=== PATIENT | female | born 1990 | race Caucasian/White ===

== ENCOUNTER → 2021-02-20 09:39 | Outpatient (CLI) | payer BC, SELFPAY ==
--- NOTE | 2021-02-20 09:44 | US_ITS ---
PROCEDURE: US TRANSVAGINAL CLINICAL INDICATION: ENLARGED UTERUS COMPARISON: No exams were available for comparison FINDINGS: The uterus is retroverted. No obvious uterine mass. UTERUS: 7cm x 5cmx 4cm with a combined endometrial thickness of 7.1mm LEFT OVARY: [id number] with a volume of 6.2ml. RIGHT OVARY: [id number] with a volume of 6.4ml. Numerous small bilateral ovarian follicles. No dominant cyst. No cul-de-sac fluid. Bilateral ovarian blood flow IMPRESSION: Retroverted uterus otherwise negative pelvic ultrasound Dictated by: Sukhi Kumar MD 02/20/2021 13:48 Sukhi Kumar MD in [place] 02/20/2021 13:48
== END ==
PROVIDERS: PCP Nurse Practitioner Family; Visit Provider Nurse Practitioner Family
DX: N85.2 Hypertrophy of uterus (principal)
CPT/HCPCS: 76830

== ENCOUNTER → 2021-03-06 13:33 | Outpatient (CLI) | payer BC, SELFPAY | PROVIDERS: PCP Nurse Practitioner Family; Visit Provider Nurse Practitioner | DX: Z20.822 Contact with and (suspected) exposure to COVID-19 (principal) | CPT/HCPCS: C9803; U0003; U0005 ==

== ENCOUNTER → 2021-05-28 12:15 | Outpatient (CLI) | payer BC, SELFPAY | PROVIDERS: PCP Nurse Practitioner Family; Visit Provider Nurse Practitioner | DX: Z20.822 Contact with and (suspected) exposure to COVID-19 (principal) | CPT/HCPCS: C9803; U0003; U0005 ==

== ENCOUNTER → 2021-07-19 15:30 | Outpatient (CLI) | payer BC, SELFPAY | PROVIDERS: PCP Nurse Practitioner Family; Visit Provider Nurse Practitioner | DX: U07.1 COVID-19 (principal) | CPT/HCPCS: C9803; U0003; U0005 ==

== ENCOUNTER 2022-05-16 08:00 | Emergency (ER) | payer BC, SELFPAY ==
--- NOTE | 2022-05-16 08:16 | EXP.UTC ---
Discharge Plan Disposition Patient Disposition: Home, Self-Care Condition: Good Prescriptions Prescriptions: New clindamycin HCl 300 mg capsule 300 mg PO Q8H Qty: 30 0RF Referrals Follow up/Referrals: Christina Figueroa APRN [Primary Care Provider] - See instructions Activity Restrictions/Add. Instructions Additional Instructions/Restrictions: Drink plenty of fluids. Take tylenol or ibuprofen for pain or fever. Take the medications as directed. Follow up with your regular doctor. GO TO THE ER FOR ANY WORSENING SYMPTOMS Throw your tooth brush away and get a new one. Clinical Impressions Clinical Impression: Strep throat Stand Alone Forms Stand Alone Forms: Work/School Release Instructions Patient Instructions: Strep Throat, DI for Strep Throat Discharge ED Provider: Tyler Zaldivar [facility] [place] General Stated complaint: swollen neck Time Seen by Provider: 05/16/22 08:15 History of Present Illness Provider Complaint: She states that for the past 2 days she has had sore throat, low grade fever and swollen lymph nodes in her neck. Related Data Previous Rx's Medication Instructions Recorded clindamycin HCl 300 mg capsule 300 mg PO Q8H #30 caps 05/16/22 Allergies Allergy/AdvReac Type Severity Reaction Status Date / Time cefadroxil [From Duricef] Allergy Verified 05/16/22 08:41 [facility] Disclaimer: The information contained in this section may have been updated after the patient was seen, as this information can be updated by other users. Social History Smoking Status: Never smoker alcohol intake: never current occupational status: employed Travel in the last 8 weeks: None ROS Obtained: Yes All systems reviewed & no additional complaints except as documented Constitutional Constitutional: Reports chills and Reports fever(s) Eyes Eyes: Denies eye discharge ENT Ears, Nose, Mouth, and Throat: Reports as per HPI Cardiovascular Cardiovascular: Denies chest pain Respiratory Respiratory: Denies chest congestion and Reports cough Gastrointestinal Gastrointestingal: Reports nausea; Denies abdominal pain, constipation, cramping, diarrhea or vomiting Musculoskeletal Musculoskeletal: Denies arthralgias Integumentary/Breasts Skin/Breast: Denies rash Neurologic Neurologic: Denies paresthesias Physical Exam General General appearance: alert and in no apparent distress Head Head exam: atraumatic, normocephalic and normal inspection Eye Eye exam: Present normal appearance, PERRL and EOMI ENT ENT exam: Present mucous membranes moist and normal external ear exam Expanded ENT Exam TM/Canal exam: Bilateral TM: erythema and bulging Nose exam: Absent sinus tenderness Mouth exam: Present normal external inspection; Absent drooling Teeth exam: Present normal inspection Throat exam: Present tonsillar erythema, tonsillomegaly and tonsillar exudate Neck Neck exam: Present normal inspection, full ROM and trachea midline; Absent tenderness, meningismus or lymphadenopathy Chest Chest inspection: Present normal inspection and symmetric chest wall rise; Absent tenderness Respiratory Respiratory exam: Present normal lung sounds bilaterally; Absent respiratory distress, wheezes or stridor Cardiovascular Cardiovascular exam: Present regular rate and normal rhythm; Absent systolic murmur or diastolic murmur Abdominal Exam Abdominal exam: Present soft and normal bowel sounds; Absent distention, tenderness, guarding, rebound or rigidity Extremities Exam Extremities exam: Present normal inspection and normal capillary refill; Absent calf tenderness Back Exam Back exam: Present normal inspection and full ROM; Absent tenderness, CVA tenderness (R) or CVA tenderness (L) Neurological Exam Neurological exam: Present alert, oriented X3 and CN II-XII intact Psychiatric Psychiatric exam: Present normal affect and normal mood Skin Skin exam: Pres
[2022-05-16 08:26] LABS: UTC Strep Screen (Rapid) Positive (Negative)
[2022-05-16 08:27] VITALS: BP 160/100; PULSE 77; RESP 16; TEMP 37.3; O2SAT 100; BMI 20.1
[2022-05-16 08:52] VITALS: BP 160/100; PULSE 77; RESP 16; TEMP 37.3
== END 2022-05-16 08:58 | disposition home or self-care (01) ==
PROVIDERS: Emergency Provider Nurse Practitioner Family; PCP Nurse Practitioner Family
DX: J02.0 Streptococcal pharyngitis (principal)
CPT/HCPCS: 87880; 99212; G0463

== ENCOUNTER 2022-07-25 08:01 | Emergency (ER) | payer BC, SELFPAY ==
[2022-07-25 08:02] VITALS: BP 119/71; PULSE 81; RESP 20; TEMP 36.9; O2SAT 99; BMI 20.1
--- NOTE | 2022-07-25 08:33 | EXP.UTC ---
Discharge Plan Disposition Patient Disposition: Home, Self-Care Condition: Good Prescriptions Prescriptions: New promethazine-DM 6.25-15 mg/5 mL Syrup 5 ml PO Q6H PRN (Reason: Cough) Qty: 180 0RF prednisone [prednisone] 20 mg tablet 20 mg PO BID 5 Days Qty: 10 0RF doxycycline monohydrate 100 mg tablet 100 mg PO BID 10 Days Qty: 20 0RF ofloxacin 0.3 % drops 1 drp otic (ear) QID 7 Days Qty: 5 0RF Rx Instructions: One drop affected eye every 2 hours while awake X 48 hours, then one drop affected eye QID for an additional 5 days albuterol sulfate [Ventolin HFA] 90 mcg/actuation HFA aerosol inhaler 2 puffs inhalation QIDP PRN (Reason: Wheezing) 30 Days Qty: 1 0RF Referrals Follow up/Referrals: Christina Figueroa APRN [Primary Care Provider] - See instructions Clinical Impressions Clinical Impression: Bronchitis, Acute bacterial conjunctivitis of left eye Instructions Patient Instructions: DI for Conjunctivitis Discharge ED Provider: Rose Marie Rivera [facility] [place] General Stated complaint: Sore throat, congestion, cough Time Seen by Provider: 07/25/22 08:38 Description of Symptoms (Recalled from Triage Doc. by RN): Cough, congestion, sore throat X 2 weeks. Getting progressively worse. No fever. Has persistent cough, chest congestion, chest tightness. Now has pain, drainage left eye and it was matted together this am. History of Present Illness Provider Complaint: Cough, congestion, sore throat X 2 weeks. Getting progressively worse. No fever. Has persistent cough, chest congestion, chest tightness. Now has pain, drainage left eye and it was matted together this am Location: face and chest Severity scale (1-10): 6 Consistency: constant Relieving factors: none Exacerbating factors: none Associated symptoms: chest pain, cough and shortness of breath Treatments prior to arrival: other (Mucinex, Robitussin) Related Data Previous Rx's Medication Instructions Recorded albuterol sulfate 90 mcg/actuation 2 puffs inhalation QIDP PRN 07/25/22 aerosol inhaler (Ventolin HFA) Wheezing 30 days #1 ea doxycycline monohydrate 100 mg 100 mg PO BID 10 days #20 tabs 07/25/22 tablet ofloxacin 0.3 % ear drops 1 drp otic (ear) QID 7 days #5 mL 07/25/22 prednisone 20 mg tablet 20 mg PO BID 5 days #10 tabs 07/25/22 promethazine-DM 6.25 mg-15 mg/5 mL 5 ml PO Q6H PRN Cough #180 mL 07/25/22 oral syrup Allergies Allergy/AdvReac Type Severity Reaction Status Date / Time cefadroxil [From Duricef] Allergy Verified 07/25/22 08:34 [facility] Disclaimer: The information contained in this section may have been updated after the patient was seen, as this information can be updated by other users. Social History (Updated 05/18/22 @ 09:15 by Tyler Zaldivar APRN) Smoking Status: Never smoker alcohol intake: never current occupational status: employed Travel in the last 8 weeks: None ROS Obtained: Yes All systems reviewed & no additional complaints except as documented Constitutional Constitutional: Denies body ache, Denies chills, Denies fever(s) and Reports malaise Eyes Eyes: Reports eye discharge Respiratory Respiratory: Reports chest congestion and Reports cough Physical Exam General General appearance: alert and in no apparent distress Head Head exam: atraumatic, normocephalic and normal inspection Eye Eye exam: Present normal appearance, PERRL, EOMI, conjunctival injection and discharge (left) ENT ENT exam: Present normal exam, normal oropharynx, mucous membranes moist, TM's normal bilaterally and normal external ear exam Neck Neck exam: Present normal inspection, full ROM and trachea midline; Absent meningismus or lymphadenopathy Chest Chest inspection: Present normal inspection and symmetric chest wall rise; Absent tenderness Respiratory Respiratory exam: Present normal lung sounds bilaterally; Absent respiratory distress Expanded Respiratory Exam Location: Upper: wheezes and Lo
[2022-07-25 08:57] VITALS: BP 121/61; PULSE 106; RESP 20; TEMP 37.3; O2SAT 97
== END 2022-07-25 08:56 | disposition home or self-care (01) ==
PROVIDERS: Emergency Provider Physician Assistant; PCP Nurse Practitioner Family
DX: J40 Bronchitis, not specified as acute or chronic (principal); H10.32 Unspecified acute conjunctivitis, left eye
CPT/HCPCS: 99212; 99213; G0463